=== PATIENT | female | born 1960 | race African-American/Black ===

== ENCOUNTER 2021-07-15 21:08 | Inpatient (IN) | payer MEDICARE, MEDICAID ==
[~2021-07-15] VITALS: Ht 157.5 cm; Wt 110.7 kg
[~2021-07-15 21:08] MED LIST: ALBU4TAB6 MT; ASPI-1497 MT; ATOR10TA69 MT; CODE10LI MT; IPRA4AER INH; MONT4TAB9 MT; PROT20 PO; ROFL250T PO; ROFL500T MT; TRAM150C25 MT
[2021-07-15 21:59] LABS: BASOPHILS % 0.2 % (0.0-2.0); EOSINOPHILS % 0.2 % (0.0-5.0); HEMATOCRIT. 35.7 % (36.0-48.0); HEMOGLOBIN. 11.8 g/dL (12.0-16.0); LYMPHOCYTES % 10.3 % (20.0-50.0); MEAN CORPUSCULAR HEMOGLOBIN 29.8 pg (28.0-32.0); MEAN CORPUSCULAR VOLUME 90.1 fL (81.0-99.0); MEAN PLATELET VOLUME 8.5 fl (7.4-10.4); MONOCYTES % 8.4 % (2.0-8.0); NEUTROPHILS % 80.9 % (40.0-76.0); PLATELET 299 x1000/uL (130-400); RED BLOOD CELL COUNT 3.96 mill/uL (4.2-5.4); RED CELL DISTRIBUTION WIDTH 14.1 % (11.6-14.6)
[2021-07-15 22:06] LABS: CHLORIDE 98 mEq/L (98-107)
[2021-07-15 22:44] LABS: CLARITY URINE CLOUDY (CLEAR); COLOR URINE YELLOW (YELLOW); KETONES URINE TRACE (NEGATIVE); LEUKOCYTE ESTERASE URINE TRACE (NEGATIVE); NITRITE URINE NEGATIVE (NEGATIVE); OCCULT BLOOD URINE TRACE (NEGATIVE); PROTEIN URINE 1+ (NEGATIVE); SPECIFIC GRAVITY URINE 1.026 (1.005-1.030)
[2021-07-16] MEDS ORDERED: AZITHROMYCIN 500 MG in DEXT 5% WATER 250 ML IV ONE (00:15)
[2021-07-16] MEDS ORDERED: CEFTRIAXONE 1 G PREMIX 50 ML IV ONE ×2 (00:15→09:00)
[2021-07-16] MEDS ORDERED: DEXTROSE 50% WATER 50ML SYRINGE IV PRN (01:00)
[2021-07-16] MEDS: DEXAMETHASONE 4MG/ML 1ML VIAL IV SCH ×2 (01:08→09:42)
[2021-07-16] MEDS: BLOOD SUGAR DIAGNOSTIC STRIP TEST SCH ×5 (06:30→20:51)
[2021-07-16 08:05] VITALS: BP 147/81
[2021-07-16] MEDS: INSULIN LISPRO 100 UNITS/ML SUBCUT SCH ×5 (08:10→20:51)
[2021-07-16] MEDS ORDERED: ENOXAPARIN 40MG/0.4ML SYR SUBCUT SCH (09:00)
[2021-07-16] MEDS ORDERED: LISI2.5T47 PO (09:35)
[2021-07-16] MEDS ORDERED: BENZ100C86 MT (09:35)
[2021-07-16] MEDS ORDERED: CETI-259 MT (09:35)
[2021-07-16 12:00] VITALS: BP 145/105
[2021-07-16] MEDS: GUAIFENESIN 200MG/10ML SUGAR FREE UDC PO PRN ×3 (12:14→22:04)
[2021-07-16] MEDS ORDERED: ALBUTEROL 6.7GM HFA INHALER ORI PRN (12:45)
[2021-07-16] MEDS: MONTELUKAST SODIUM 10MG TABLET PO SCH ×2 (13:11→22:04)
[2021-07-16 16:00] VITALS: BP 129/81
[2021-07-16] MEDS: ALBUTEROL 6.7GM HFA INHALER ORI SCH (18:30)
[2021-07-16 20:00] VITALS: BP 167/96
[2021-07-16] MEDS: ENOXAPARIN 30MG/0.3ML SYR SUBCUT SCH (20:51)
[2021-07-17] VITALS: BP 159/98
[2021-07-17] MEDS: CEFTRIAXONE 1,000 MG in DEXTROSE 5% WATER 50 ML IV SCH (00:03)
[2021-07-17] MEDS: ALBUTEROL 6.7GM HFA INHALER ORI SCH ×4 (00:04→18:08)
[2021-07-17] MEDS: AZITHROMYCIN 500 MG in DEXT 5% WATER 250 ML IV SCH (00:57)
[2021-07-17] MEDS ORDERED: AZITHROMYCIN 500 MG in DEXT 5% WATER 250 ML IV SCH (02:00)
[2021-07-17 04:00] VITALS: BP 148/86
[2021-07-17] MEDS: BLOOD SUGAR DIAGNOSTIC STRIP TEST SCH ×4 (06:05→20:27)
[2021-07-17 06:33] LABS: CHLORIDE 98 mEq/L (98-107)
[2021-07-17 06:46] LABS: BASOPHILS % 0.2 % (0.0-2.0); HEMATOCRIT. 38.3 % (36.0-48.0); HEMOGLOBIN. 12.1 g/dL (12.0-16.0); LYMPHOCYTES % 13.4 % (20.0-50.0); MEAN CORPUSCULAR HEMOGLOBIN 29.1 pg (28.0-32.0); MEAN CORPUSCULAR VOLUME 92.1 fL (81.0-99.0); MEAN PLATELET VOLUME 8.8 fl (7.4-10.4); MONOCYTES % 10.8 % (2.0-8.0); NEUTROPHILS % 75.6 % (40.0-76.0); PLATELET 339 x1000/uL (130-400); RED BLOOD CELL COUNT 4.16 mill/uL (4.2-5.4); RED CELL DISTRIBUTION WIDTH 14.3 % (11.6-14.6)
[2021-07-17 06:47] LABS: PHOSPHORUS 2.5 mg/dL (2.5-4.9)
[2021-07-17 08:00] VITALS: BP 144/83
[2021-07-17] MEDS: ENOXAPARIN 30MG/0.3ML SYR SUBCUT SCH ×2 (08:27→22:17)
[2021-07-17] MEDS: DEXAMETHASONE 4MG/ML 1ML VIAL IV SCH (08:27)
[2021-07-17] MEDS: INSULIN LISPRO 100 UNITS/ML SUBCUT SCH ×4 (08:28→22:12)
[2021-07-17] MEDS ORDERED: VANCOMYCIN 1,750 MG in DEXT 5% WATER 500 ML IV NR (10:00)
[2021-07-17] MEDS ORDERED: KCL 20MEQ/100ML PREMIX 100 ML IV NR (10:00)
[2021-07-17] MEDS: GUAIFENESIN 200MG/10ML SUGAR FREE UDC PO PRN (10:31)
[2021-07-17 12:00] VITALS: BP 128/71
[2021-07-17] MEDS ORDERED: POTASSIUM CHLORIDE 20MEQ TABLET SR PO NR (12:00)
[2021-07-17] MEDS: ACETAMINOPHEN 325MG TABLET PO PRN (12:29)
[2021-07-17 15:54] VITALS: BP 124/67
[2021-07-17 20:00] VITALS: BP 149/85
[2021-07-17] MEDS ORDERED: VANCOMYCIN 1 G PREMIX 200 ML IV SCH (22:00)
[2021-07-17] MEDS ORDERED: INSULIN GLARGINE UD 100 UNITS/ML SYR SUBCUT SCH (22:00)
[2021-07-17] MEDS: DEXAMETHASONE 10 MG/ML VIAL IV SCH (22:06)
[2021-07-17] MEDS: MONTELUKAST SODIUM 10MG TABLET PO SCH (22:11)
[2021-07-17] MEDS: VANCOMYCIN 750 MG PREMIX 150 ML IV SCH (22:17)
[2021-07-17] MEDS: GUAIFENESIN/DM 600MG/30MG ER TAB 12HR PO PRN (22:40)
[2021-07-18] VITALS: BP 148/77
[2021-07-18] MEDS: CEFTRIAXONE 1,000 MG in DEXTROSE 5% WATER 50 ML IV SCH (00:44)
[2021-07-18] MEDS: ALBUTEROL 6.7GM HFA INHALER ORI SCH ×7 (00:44→22:16)
[2021-07-18] MEDS: AZITHROMYCIN 500 MG in DEXT 5% WATER 250 ML IV SCH (01:26)
[2021-07-18 04:00] VITALS: BP 154/82
[2021-07-18] MEDS: DEXAMETHASONE 10 MG/ML VIAL IV SCH ×2 (05:36→13:00)
[2021-07-18 06:41] LABS: BASOPHILS % 0.1 % (0.0-2.0); HEMATOCRIT. 39.2 % (36.0-48.0); HEMOGLOBIN. 12.5 g/dL (12.0-16.0); LYMPHOCYTES % 12.1 % (20.0-50.0); MEAN CORPUSCULAR HEMOGLOBIN 29.5 pg (28.0-32.0); MEAN PLATELET VOLUME 8.9 fl (7.4-10.4); MONOCYTES % 6.7 % (2.0-8.0); NEUTROPHILS % 81.1 % (40.0-76.0); PLATELET 376 x1000/uL (130-400); RED BLOOD CELL COUNT 4.22 mill/uL (4.2-5.4)
[2021-07-18 06:51] LABS: CHLORIDE 98 mEq/L (98-107)
[2021-07-18] MEDS ORDERED: INSULIN LISPRO 100 UNITS/ML SUBCUT SCH ×4 (07:40→17:40)
[2021-07-18] MEDS: BLOOD SUGAR DIAGNOSTIC STRIP TEST SCH ×4 (07:40→21:00)
[2021-07-18 08:00] VITALS: BP 161/98
[2021-07-18] MEDS: GUAIFENESIN/DM 600MG/30MG ER TAB 12HR PO PRN (09:52)
[2021-07-18] MEDS: ACETAMINOPHEN 325MG TABLET PO PRN (09:52)
[2021-07-18] MEDS: ENOXAPARIN 30MG/0.3ML SYR SUBCUT SCH ×2 (09:53→22:17)
[2021-07-18] MEDS: INSULIN LISPRO 100 UNITS/ML SUBCUT SCH ×4 (09:54→22:20)
[2021-07-18] MEDS: VANCOMYCIN 750 MG PREMIX 150 ML IV SCH (10:00)
[2021-07-18 12:00] VITALS: BP 138/79
[2021-07-18] MEDS: BENZONATATE 100MG CAPSULE PO PRN ×2 (12:40→22:17)
[2021-07-18] MEDS ORDERED: LISINOPRIL 2.5MG TABLET PO SCH (13:00)
[2021-07-18 20:00] VITALS: BP 170/91
[2021-07-18] MEDS ORDERED: INSULIN GLARGINE UD 100 UNITS/ML SYR SUBCUT SCH (22:00)
[2021-07-18] MEDS: MONTELUKAST SODIUM 10MG TABLET PO SCH (22:17)
[2021-07-19] VITALS: BP 156/80
[2021-07-19] MEDS: CEFTRIAXONE 1,000 MG in DEXTROSE 5% WATER 50 ML IV SCH (00:02)
[2021-07-19] MEDS: ALBUTEROL 6.7GM HFA INHALER ORI SCH ×6 (00:03→22:26)
[2021-07-19] MEDS: AZITHROMYCIN 500 MG in DEXT 5% WATER 250 ML IV SCH (01:17)
[2021-07-19] MEDS: GUAIFENESIN/DM 600MG/30MG ER TAB 12HR PO PRN ×2 (01:25→13:16)
[2021-07-19 04:00] VITALS: BP 163/84
[2021-07-19 05:49] LABS: CHLORIDE 101 mEq/L (98-107)
[2021-07-19 05:56] LABS: PHOSPHORUS 2.7 mg/dL (2.5-4.9)
[2021-07-19 06:08] LABS: BASOPHILS % 0.4 % (0.0-2.0); HEMATOCRIT. 36.6 % (36.0-48.0); HEMOGLOBIN. 11.6 g/dL (12.0-16.0); LYMPHOCYTES % 13.5 % (20.0-50.0); MEAN CORPUSCULAR HEMOGLOBIN 29.2 pg (28.0-32.0); MEAN PLATELET VOLUME 8.8 fl (7.4-10.4); NEUTROPHILS % 77.1 % (40.0-76.0); PLATELET 430 x1000/uL (130-400); RED BLOOD CELL COUNT 3.97 mill/uL (4.2-5.4)
[2021-07-19] MEDS: BLOOD SUGAR DIAGNOSTIC STRIP TEST SCH ×4 (07:24→21:00)
[2021-07-19] MEDS ORDERED: INSULIN LISPRO 100 UNITS/ML SUBCUT SCH ×3 (07:40→17:40)
[2021-07-19 08:00] VITALS: BP 135/78
[2021-07-19 08:31] LABS: BG BASE EXCESS 5.8 mmol/L (-2.0-2.0); BG CARBOXYHEMOGLOBIN 0.6 % (0.5-1.5); BG DEOXYHEMOGLOBIN 8.9 % (0.0-5.0); BG HCO3 ACT 29.7 mmol/L (22.0-26.0); BG METHEMOGLOBIN 0.3 % (0.0-1.5); BG OXYHEMOGLOBIN 90.2 % (94.0-97.0); BG PCO2 40.2 mmHg (35.0-45.0); BG PH 7.486 (7.350-7.450); BG PO2 58.1 mmHg (75.0-100.0); BG SAMPLE SITE RIGHT RADIAL; BG TOTAL HEMOGLOBIN 13.1 g/dL (12.0-18.0); BG VENT MODE MASK - NRB
[2021-07-19] MEDS: INSULIN LISPRO 100 UNITS/ML SUBCUT SCH ×4 (08:59→22:27)
[2021-07-19] MEDS ORDERED: ENOXAPARIN 40MG/0.4ML SYR SUBCUT SCH (09:00)
[2021-07-19] MEDS ORDERED: PNEUMOCOCCAL 23-VAL P-SAC VAC 0.5 ML IM ONE (09:00)
[2021-07-19] MEDS: ENOXAPARIN 30MG/0.3ML SYR SUBCUT SCH ×2 (09:00→22:26)
[2021-07-19] MEDS: LISINOPRIL 5MG TABLET PO SCH (09:02)
[2021-07-19] MEDS: DEXAMETHASONE 10 MG/ML VIAL IV SCH ×2 (09:03→18:08)
[2021-07-19 12:00] VITALS: BP 130/69
[2021-07-19 16:00] VITALS: BP 143/76
[2021-07-19] MEDS: BENZONATATE 100MG CAPSULE PO PRN (18:08)
[2021-07-19 20:00] VITALS: BP 155/86
[2021-07-19] MEDS ORDERED: INSULIN GLARGINE UD 100 UNITS/ML SYR SUBCUT SCH (22:00)
[2021-07-19] MEDS: MONTELUKAST SODIUM 10MG TABLET PO SCH (22:26)
[2021-07-20] VITALS: BP 147/77
[2021-07-20] MEDS: CEFTRIAXONE 1,000 MG in DEXTROSE 5% WATER 50 ML IV SCH (00:20)
[2021-07-20] MEDS: ALBUTEROL 6.7GM HFA INHALER ORI SCH ×7 (00:20→23:54)
[2021-07-20] MEDS: AZITHROMYCIN 500 MG in DEXT 5% WATER 250 ML IV SCH (01:38)
[2021-07-20] MEDS: GUAIFENESIN/DM 600MG/30MG ER TAB 12HR PO PRN (01:41)
[2021-07-20 04:00] VITALS: BP 152/83
[2021-07-20] MEDS: CLONIDINE 0.1MG TABLET PO PRN ×2 (06:16→21:56)
[2021-07-20 07:06] LABS: BASOPHILS % 0.3 % (0.0-2.0); EOSINOPHILS % 0.1 % (0.0-5.0); HEMATOCRIT. 38.1 % (36.0-48.0); HEMOGLOBIN. 12.3 g/dL (12.0-16.0); LYMPHOCYTES % 14.6 % (20.0-50.0); MEAN CORPUSCULAR HEMOGLOBIN 29.7 pg (28.0-32.0); MEAN CORPUSCULAR VOLUME 92.4 fL (81.0-99.0); MEAN PLATELET VOLUME 8.9 fl (7.4-10.4); MONOCYTES % 8.3 % (2.0-8.0); NEUTROPHILS % 76.7 % (40.0-76.0); PLATELET 472 x1000/uL (130-400); RED BLOOD CELL COUNT 4.13 mill/uL (4.2-5.4)
[2021-07-20] MEDS: BLOOD SUGAR DIAGNOSTIC STRIP TEST SCH ×4 (07:26→21:54)
[2021-07-20 07:40] LABS: CHLORIDE 100 mEq/L (98-107)
[2021-07-20] MEDS ORDERED: INSULIN LISPRO 100 UNITS/ML SUBCUT SCH ×5 (07:40→17:40)
[2021-07-20 08:00] VITALS: BP_SYST 155; BP_DIAS 71; BP_DIAS 91
[2021-07-20] MEDS: ACETAMINOPHEN 325MG TABLET PO PRN (08:26)
[2021-07-20] MEDS: ENOXAPARIN 30MG/0.3ML SYR SUBCUT SCH ×2 (08:26→21:53)
[2021-07-20] MEDS: LISINOPRIL 5MG TABLET PO SCH (08:26)
[2021-07-20] MEDS: BENZONATATE 100MG CAPSULE PO PRN (08:26)
[2021-07-20] MEDS: DEXAMETHASONE 10 MG/ML VIAL IV SCH ×2 (08:26→17:15)
[2021-07-20] MEDS: INSULIN LISPRO 100 UNITS/ML SUBCUT SCH ×4 (08:28→21:53)
[2021-07-20 12:00] VITALS: BP 150/85
[2021-07-20 16:00] VITALS: BP 152/81
[2021-07-20 20:00] VITALS: BP 177/97
[2021-07-20] MEDS: MONTELUKAST SODIUM 10MG TABLET PO SCH (21:57)
[2021-07-20] MEDS ORDERED: INSULIN GLARGINE UD 100 UNITS/ML SYR SUBCUT SCH (22:00)
[2021-07-21] VITALS (9 sets, daily range): BP systolic 135–178; BP diastolic 66–98
[2021-07-21] MEDS: ALBUTEROL 6.7GM HFA INHALER ORI SCH ×3 (04:12→11:09)
[2021-07-21] MEDS: CLONIDINE 0.1MG TABLET PO PRN ×2 (04:40→12:31)
[2021-07-21] MEDS: BLOOD SUGAR DIAGNOSTIC STRIP TEST SCH ×4 (07:57→20:38)
[2021-07-21] MEDS: DEXAMETHASONE 10 MG/ML VIAL IV SCH ×2 (08:03→17:53)
[2021-07-21] MEDS: BENZONATATE 100MG CAPSULE PO PRN ×2 (08:03→12:30)
[2021-07-21] MEDS: LISINOPRIL 10MG TABLET PO SCH (08:04)
[2021-07-21] MEDS: ENOXAPARIN 30MG/0.3ML SYR SUBCUT SCH ×2 (08:04→21:38)
[2021-07-21] MEDS: INSULIN LISPRO 100 UNITS/ML SUBCUT SCH ×7 (08:05→21:37)
[2021-07-21] MEDS: GUAIFENESIN/DM 600MG/30MG ER TAB 12HR PO PRN (12:30)
[2021-07-21] MEDS ORDERED: IPRATROPIUM/ALBUTEROL 0.5-3(2.5)MG/3ML NEB HHN PRN (15:15)
[2021-07-21] MEDS: ACETAMINOPHEN 325MG TABLET PO PRN (17:53)
[2021-07-21] MEDS: CETIRIZINE 10MG TABLET PO PRN (18:25)
[2021-07-21] MEDS: MONTELUKAST SODIUM 10MG TABLET PO SCH (21:38)
[2021-07-21] MEDS ORDERED: INSULIN GLARGINE UD 100 UNITS/ML SYR SUBCUT SCH (22:00)
[2021-07-22] VITALS (10 sets, daily range): BP systolic 117–208; BP diastolic 56–164
[2021-07-22] MEDS: CLONIDINE 0.1MG TABLET PO PRN (04:11)
[2021-07-22] MEDS: INSULIN LISPRO 100 UNITS/ML SUBCUT SCH ×7 (05:56→20:10)
[2021-07-22] MEDS: BLOOD SUGAR DIAGNOSTIC STRIP TEST SCH ×4 (06:00→20:10)
[2021-07-22] MEDS ORDERED: HYDRALAZINE HCL 25MG TABLET PO PRN (06:45)
[2021-07-22] MEDS: BENZONATATE 100MG CAPSULE PO PRN ×2 (08:28→20:08)
[2021-07-22] MEDS: CETIRIZINE 10MG TABLET PO PRN (08:29)
[2021-07-22] MEDS: DEXAMETHASONE 10 MG/ML VIAL IV SCH (08:30)
[2021-07-22] MEDS: LISINOPRIL 10MG TABLET PO SCH (08:30)
[2021-07-22] MEDS: ENOXAPARIN 30MG/0.3ML SYR SUBCUT SCH ×2 (08:31→20:08)
[2021-07-22] MEDS: IPRATROPIUM/ALBUTEROL 0.5-3(2.5)MG/3ML NEB HHN SCH ×2 (11:20→20:15)
[2021-07-22] MEDS: GUAIFENESIN/DM 600MG/30MG ER TAB 12HR PO PRN (12:20)
[2021-07-22 12:43] LABS: BASOPHILS % 0.5 % (0.0-2.0); EOSINOPHILS % 0.1 % (0.0-5.0); HEMATOCRIT. 41.6 % (36.0-48.0); HEMOGLOBIN. 13.1 g/dL (12.0-16.0); LYMPHOCYTES % 12.5 % (20.0-50.0); MEAN CORPUSCULAR HEMOGLOBIN 28.9 pg (28.0-32.0); MEAN CORPUSCULAR VOLUME 91.3 fL (81.0-99.0); MEAN PLATELET VOLUME 8.4 fl (7.4-10.4); MONOCYTES % 4.4 % (2.0-8.0); NEUTROPHILS % 82.5 % (40.0-76.0); PLATELET 613 x1000/uL (130-400); RED BLOOD CELL COUNT 4.55 mill/uL (4.2-5.4); RED CELL DISTRIBUTION WIDTH 14.1 % (11.6-14.6)
[2021-07-22 12:49] LABS: CHLORIDE 100 mEq/L (98-107)
[2021-07-22 12:55] LABS: PHOSPHORUS 3.2 mg/dL (2.5-4.9)
[2021-07-22] MEDS ORDERED: IPRATROPIUM/ALBUTEROL 0.5-3(2.5)MG/3ML NEB ONE (16:05)
[2021-07-22] MEDS: MONTELUKAST SODIUM 10MG TABLET PO SCH (20:08)
[2021-07-22] MEDS ORDERED: INSULIN GLARGINE UD 100 UNITS/ML SYR SUBCUT SCH (23:00)
[2021-07-23] VITALS (10 sets, daily range): BP systolic 106–138; BP diastolic 59–87
[2021-07-23] MEDS: IPRATROPIUM/ALBUTEROL 0.5-3(2.5)MG/3ML NEB HHN SCH ×4 (02:24→21:33)
[2021-07-23] MEDS: ACETAMINOPHEN 325MG TABLET PO PRN ×2 (02:55→09:42)
[2021-07-23] MEDS: BLOOD SUGAR DIAGNOSTIC STRIP TEST SCH ×4 (06:16→21:07)
[2021-07-23] MEDS ORDERED: INSULIN LISPRO 100 UNITS/ML SUBCUT SCH ×4 (06:50→17:20)
[2021-07-23 08:13] LABS: BASOPHILS % 0.5 % (0.0-2.0); EOSINOPHILS % 0.1 % (0.0-5.0); HEMATOCRIT. 37.2 % (36.0-48.0); HEMOGLOBIN. 12.1 g/dL (12.0-16.0); LYMPHOCYTES % 29.6 % (20.0-50.0); MEAN CORPUSCULAR HEMOGLOBIN 29.4 pg (28.0-32.0); MEAN CORPUSCULAR VOLUME 90.2 fL (81.0-99.0); MEAN PLATELET VOLUME 8.4 fl (7.4-10.4); MONOCYTES % 8.9 % (2.0-8.0); NEUTROPHILS % 60.9 % (40.0-76.0); PLATELET 559 x1000/uL (130-400); RED BLOOD CELL COUNT 4.12 mill/uL (4.2-5.4)
[2021-07-23 08:15] LABS: CHLORIDE 103 mEq/L (98-107)
[2021-07-23 08:22] LABS: PHOSPHORUS 4.1 mg/dL (2.5-4.9)
[2021-07-23] MEDS: LISINOPRIL 10MG TABLET PO SCH (09:14)
[2021-07-23] MEDS: DEXAMETHASONE 10 MG/ML VIAL IV SCH (09:14)
[2021-07-23] MEDS: BENZONATATE 100MG CAPSULE PO PRN (09:14)
[2021-07-23] MEDS: CETIRIZINE 10MG TABLET PO PRN (09:14)
[2021-07-23] MEDS: ENOXAPARIN 30MG/0.3ML SYR SUBCUT SCH ×2 (09:15→21:07)
[2021-07-23] MEDS: INSULIN LISPRO 100 UNITS/ML SUBCUT SCH ×4 (09:21→21:04)
[2021-07-23] MEDS ORDERED: THROAT LOZENGES-BENZOCAINE/MENTH/CETYLPYRD CL LOZENGES MM PRN (13:00)
[2021-07-23] MEDS ORDERED: ACETAMINOPHEN 325MG TABLET PO NR (15:00)
[2021-07-23] MEDS ORDERED: ACETAMINOPHEN 500MG TABLET PO NR (15:10)
[2021-07-23] MEDS ORDERED: MED4 MT (16:15)
[2021-07-23] MEDS ORDERED: LISI10TA26 PO (16:15)
[2021-07-23] MEDS ORDERED: CETI10TA6 PO (16:15)
[2021-07-23] MEDS ORDERED: BENZ100C86 PO (16:15)
[2021-07-23] MEDS ORDERED: MONT10TA21 PO (16:15)
[2021-07-23] MEDS ORDERED: INSU100I24 SQ (16:31)
[2021-07-23] MEDS ORDERED: INSU100I13 SQ (16:31)
[2021-07-23] MEDS ORDERED: ALBU18HF2 IH (16:41)
[2021-07-23] MEDS ORDERED: PANT40TA51 MT (17:17)
[2021-07-23] MEDS: MONTELUKAST SODIUM 10MG TABLET PO SCH (21:02)
[2021-07-23] MEDS ORDERED: INSULIN GLARGINE UD 100 UNITS/ML SYR SUBCUT SCH (22:00)
[2021-07-24] VITALS (9 sets, daily range): BP systolic 90–132; BP diastolic 51–95
[2021-07-24] MEDS: IPRATROPIUM/ALBUTEROL 0.5-3(2.5)MG/3ML NEB HHN SCH ×3 (03:04→15:05)
[2021-07-24] MEDS: BLOOD SUGAR DIAGNOSTIC STRIP TEST SCH ×2 (06:30→12:29)
[2021-07-24] MEDS ORDERED: INSULIN LISPRO 100 UNITS/ML SUBCUT SCH ×2 (06:50→11:50)
[2021-07-24] MEDS: DEXAMETHASONE 10 MG/ML VIAL IV SCH (08:21)
[2021-07-24] MEDS: ENOXAPARIN 30MG/0.3ML SYR SUBCUT SCH (08:21)
[2021-07-24] MEDS: INSULIN LISPRO 100 UNITS/ML SUBCUT SCH ×2 (08:22→12:42)
[2021-07-24] MEDS: LISINOPRIL 10MG TABLET PO SCH (08:22)
[2021-07-24] MEDS ORDERED: LIDOCAINE HCL/PF 1% 2ML VIAL ONE (12:05)
[2021-07-24 12:23] LABS: BG BASE EXCESS 1.7 mmol/L (-2.0-2.0); BG CARBOXYHEMOGLOBIN 0.8 % (0.5-1.5); BG DEOXYHEMOGLOBIN 13.7 % (0.0-5.0); BG METHEMOGLOBIN 0.1 % (0.0-1.5); BG OXYGEN SATURATION 86.2 % (92.0-98.5); BG OXYHEMOGLOBIN 85.4 % (94.0-97.0); BG PCO2 35.2 mmHg (35.0-45.0); BG SAMPLE SITE RIGHT BRACHIAL; BG TOTAL HEMOGLOBIN 13.6 g/dL (12.0-18.0); BG VENT MODE ROOM AIR
[2021-07-24] MEDS ORDERED: BENZ100C86 PO (16:27)
[2021-07-24] MEDS ORDERED: MONT10TA21 PO (16:27)
[2021-07-24] MEDS ORDERED: LISI10TA26 PO (16:27)
[2021-07-24] MEDS ORDERED: CETI10TA6 PO (16:27)
[2021-07-24] MEDS ORDERED: INSULIN GLARGINE UD 100 UNITS/ML SYR SUBCUT SCH (22:00)
== END 2021-07-24 16:41 | disposition home health service (06) | DRG 871 ==
LOC: ER 21:08 → SUPCPDRO 23:50 → MICUSO 23:51 → EDBEDREQTM 23:53 → EDBEDREQ 23:53 → 7WST 07-16 07:25 → 3WST 07-21 11:22
PROVIDERS: ADMIT Internal Medicine; ATTEND Internal Medicine
DX: A41.89 Other specified sepsis (principal); U07.1 COVID-19; J96.01 Acute respiratory failure with hypoxia; J12.82 Pneumonia due to coronavirus disease 2019; J44.0 Chronic obstructive pulmonary disease with (acute) lower respiratory infection; E44.1 Mild protein-calorie malnutrition; E87.2 Acidosis; Z68.41 Body mass index [BMI] 40.0-44.9, adult; A41.1 Sepsis due to other specified staphylococcus; R65.20 Severe sepsis without septic shock; E11.9 Type 2 diabetes mellitus without complications; E88.81 Metabolic syndrome and other insulin resistance; E66.9 Obesity, unspecified; E78.5 Hyperlipidemia, unspecified; R74.01 Elevation of levels of liver transaminase levels; E87.6 Hypokalemia; E78.00 Pure hypercholesterolemia, unspecified; I10 Essential (primary) hypertension; I48.91 Unspecified atrial fibrillation; T38.0X5A Adverse effect of glucocorticoids and synthetic analogues, initial encounter; Z87.891 Personal history of nicotine dependence; Z79.899 Other long term (current) drug therapy; Z79.4 Long term (current) use of insulin; Z82.49 Family history of ischemic heart disease and other diseases of the circulatory system; Y92.89 Other specified places as the place of occurrence of the external cause
CPT/HCPCS: 36415; 36600; 71045; 80048; 80053; 80202; 81003; 82375; 82728; 82805; 82962; 83036; 83605; 83615; 83735; 83880; 84100; 84145; 84484; 85025; 85379; 86140; 87426; 90732; 93005; 94640; 97162; 99291; C1893; J0456; J0696; J1100; J1650; J1815; J3370; J3480; J3490; J7040; J7060

== ENCOUNTER 2021-09-26 17:00 | Inpatient (IN) | payer MEDICARE, MEDICAID ==
[~2021-09-26] VITALS: Ht 167.6 cm; Wt 112.9 kg
[~2021-09-26 17:00] MED LIST changes: +ALBU18HF2 IH; +BENZ100C86 PO; +CETI10TA6 PO; -CODE10LI MT; +INSU100I13 SQ; +INSU100I24 SQ; +LISI10TA26 PO; +MED4 MT; +MONT10TA21 PO; -MONT4TAB9 MT; +PANT40TA51 MT; -ROFL500T MT; -TRAM150C25 MT
[2021-09-26] MEDS ORDERED: IPRATROPIUM BROMIDE (0.02%) 0.5MG/2.5ML NEB HHN STA (17:41)
[2021-09-26] MEDS ORDERED: ALBUTEROL (0.083%) 2.5MG/3ML NEB HHN STA (17:41)
[2021-09-26] MEDS ORDERED: METHYLPREDNISOLONE SOD SUCC 125 MG/2 ML VIAL IV STA (17:41)
[2021-09-26 18:34] LABS: BASOPHILS % 0.6 % (0.0-2.0); EOSINOPHILS % 0.1 % (0.0-5.0); HEMATOCRIT. 39.2 % (36.0-48.0); HEMOGLOBIN. 12.8 g/dL (12.0-16.0); LYMPHOCYTES % 13.9 % (20.0-50.0); MEAN CORPUSCULAR HEMOGLOBIN 30.2 pg (28.0-32.0); MEAN CORPUSCULAR VOLUME 92.4 fL (81.0-99.0); MEAN PLATELET VOLUME 8.7 fl (7.4-10.4); MONOCYTES % 3.6 % (2.0-8.0); NEUTROPHILS % 81.8 % (40.0-76.0); PLATELET 338 x1000/uL (130-400); RED BLOOD CELL COUNT 4.24 mill/uL (4.2-5.4); RED CELL DISTRIBUTION WIDTH 15.1 % (11.6-14.6)
[2021-09-26 18:40] LABS: CHLORIDE 102 mEq/L (98-107)
[2021-09-26] MEDS ORDERED: BENZONATATE 200MG CAPSULE PO ONE (18:45)
[2021-09-26] MEDS ORDERED: SODIUM CHLORIDE 0.9% 1,000 ML IV ONE (19:15)
[2021-09-26] MEDS ORDERED: P50 MT (20:36)
[2021-09-26] MEDS ORDERED: ALBU6.7H9 INH (20:38)
[2021-09-27] MEDS ORDERED: CLONIDINE 0.1MG TABLET PO PRN
[2021-09-27] MEDS ORDERED: DIPHENHYDRAMINE 50MG/ML VIAL IV PRN
[2021-09-27] MEDS ORDERED: ZOLPIDEM TARTRATE 5MG TABLET PO PRN
[2021-09-27] MEDS ORDERED: ACETAMINOPHEN 325MG TABLET PO PRN
[2021-09-27] MEDS ORDERED: IPRATROPIUM/ALBUTEROL 0.5-3(2.5)MG/3ML NEB HHN PRN
[2021-09-27] MEDS ORDERED: LEVOFLOXACIN 500MG PREMIX 100 ML IV SCH
[2021-09-27] MEDS ORDERED: ONDANSETRON HCL 4MG/2ML INJ IV PRN
[2021-09-27] MEDS ORDERED: INSULIN LISPRO 100 UNITS/ML SUBCUT SCH ×2 (01:00→17:10)
[2021-09-27] MEDS: BLOOD SUGAR DIAGNOSTIC STRIP TEST SCH ×5 (01:12→21:00)
[2021-09-27] MEDS: ENOXAPARIN 30MG/0.3ML SYR SUBCUT SCH ×3 (01:27→22:14)
[2021-09-27] MEDS ORDERED: HYDRALAZINE 20MG/ML VIAL IV PRN (01:30)
[2021-09-27] MEDS ORDERED: INSULIN LISPRO (HUMALOG) 300UNITS/3ML VIAL SUBCUT NR (01:30)
[2021-09-27] MEDS: ACETAMINOPHEN 325MG TABLET PO PRN ×4 (01:42→17:21)
[2021-09-27] MEDS: METHYLPREDNISOLONE SOD SUCC 125 MG/2 ML VIAL IV SCH ×3 (02:17→17:04)
[2021-09-27] MEDS: BENZONATATE 200MG CAPSULE PO PRN ×2 (03:33→17:04)
[2021-09-27 04:59] VITALS: BP 154/83
[2021-09-27] MEDS: IPRATROPIUM/ALBUTEROL 0.5-3(2.5)MG/3ML NEB HHN SCH ×4 (05:15→20:30)
[2021-09-27] MEDS: SODIUM CHLORIDE 0.9% INJ 3ML FLUSH IVF SCH ×3 (06:47→22:14)
[2021-09-27] MEDS: OMEPRAZOLE 20MG CAPSULE EXTENDED RELEASE PO SCH ×2 (06:49→22:15)
[2021-09-27 08:00] VITALS: BP 150/80
[2021-09-27] MEDS: GUAIFENESIN 600MG ER TABLET PO SCH ×2 (08:31→22:15)
[2021-09-27] MEDS: LISINOPRIL 10MG TABLET PO SCH (08:32)
[2021-09-27] MEDS: INSULIN GLARGINE UD 100 UNITS/ML SYR SUBCUT SCH (09:38)
[2021-09-27] MEDS ORDERED: INSULIN LISPRO 100 UNITS/ML SUBCUT NR (12:30)
[2021-09-27 16:00] VITALS: BP 133/91
[2021-09-27] MEDS: MONTELUKAST SODIUM 10MG TABLET PO SCH (17:04)
[2021-09-27] MEDS ORDERED: INSULIN LISPRO (HIGH DOSE) 100 UNITS/ML SUBCUT SCH (17:10)
[2021-09-27 20:00] VITALS: BP 143/83
[2021-09-27] MEDS ORDERED: INSULIN GLARGINE UD 100 UNITS/ML SYR SUBCUT SCH (22:00)
[2021-09-27] MEDS ORDERED: DEXTROSE 50% WATER 50ML SYRINGE IV PRN ×2 (23:00)
[2021-09-27] MEDS: INSULIN LISPRO 100 UNITS/ML SUBCUT SCH (23:14)
[2021-09-28] MEDS: BENZONATATE 200MG CAPSULE PO PRN (02:13)
[2021-09-28] MEDS: METHYLPREDNISOLONE SOD SUCC 125 MG/2 ML VIAL IV SCH ×2 (02:13→09:27)
[2021-09-28] MEDS: IPRATROPIUM/ALBUTEROL 0.5-3(2.5)MG/3ML NEB HHN SCH ×4 (02:23→21:48)
[2021-09-28 04:00] VITALS: BP 145/89
[2021-09-28] MEDS: OMEPRAZOLE 20MG CAPSULE EXTENDED RELEASE PO SCH ×2 (05:49→21:02)
[2021-09-28] MEDS: BLOOD SUGAR DIAGNOSTIC STRIP TEST SCH ×4 (06:09→21:03)
[2021-09-28] MEDS: SODIUM CHLORIDE 0.9% INJ 3ML FLUSH IVF SCH ×3 (06:09→21:03)
[2021-09-28] MEDS ORDERED: BLOOD SUGAR DIAGNOSTIC STRIP TEST SCH (07:10)
[2021-09-28 08:00] VITALS: BP 148/78
[2021-09-28] MEDS: ENOXAPARIN 30MG/0.3ML SYR SUBCUT SCH ×2 (09:28→21:09)
[2021-09-28] MEDS: GUAIFENESIN 600MG ER TABLET PO SCH ×2 (09:28→21:02)
[2021-09-28] MEDS: LISINOPRIL 10MG TABLET PO SCH (09:29)
[2021-09-28] MEDS: INSULIN GLARGINE UD 100 UNITS/ML SYR SUBCUT SCH (09:30)
[2021-09-28] MEDS: ACETAMINOPHEN 325MG TABLET PO PRN (09:41)
[2021-09-28 12:00] VITALS: BP 156/81
[2021-09-28] MEDS: INSULIN LISPRO 100 UNITS/ML SUBCUT SCH ×4 (15:17→21:04)
[2021-09-28 16:00] VITALS: BP 154/79
[2021-09-28] MEDS: PREDNISONE 20MG TABLET PO SCH (18:18)
[2021-09-28] MEDS: MONTELUKAST SODIUM 10MG TABLET PO SCH (18:18)
[2021-09-28 20:00] VITALS: BP 165/89
[2021-09-28] MEDS: PROMETHAZINE/DEXTROMETHORPHAN 6.25-15MG/5ML BOTTLE 120ML PO PRN (21:02)
[2021-09-29] VITALS: BP 155/74
[2021-09-29] MEDS: IPRATROPIUM/ALBUTEROL 0.5-3(2.5)MG/3ML NEB HHN SCH ×4 (01:50→21:22)
[2021-09-29 04:00] VITALS: BP 148/83
[2021-09-29] MEDS: BLOOD SUGAR DIAGNOSTIC STRIP TEST SCH ×4 (05:22→20:31)
[2021-09-29] MEDS: SODIUM CHLORIDE 0.9% INJ 3ML FLUSH IVF SCH ×3 (05:22→20:32)
[2021-09-29] MEDS: PROMETHAZINE/DEXTROMETHORPHAN 6.25-15MG/5ML BOTTLE 120ML PO PRN ×3 (05:24→18:07)
[2021-09-29] MEDS: INSULIN LISPRO 100 UNITS/ML SUBCUT SCH ×4 (05:25→20:37)
[2021-09-29 08:00] VITALS: BP 145/81
[2021-09-29] MEDS: PREDNISONE 20MG TABLET PO SCH (10:15)
[2021-09-29] MEDS: FAMOTIDINE 20MG TABLET PO SCH ×2 (10:15→20:30)
[2021-09-29] MEDS: GUAIFENESIN 600MG ER TABLET PO SCH ×2 (10:15→20:30)
[2021-09-29] MEDS: LISINOPRIL 10MG TABLET PO SCH (10:19)
[2021-09-29] MEDS: ENOXAPARIN 30MG/0.3ML SYR SUBCUT SCH ×2 (10:20→20:31)
[2021-09-29] MEDS: INSULIN GLARGINE UD 100 UNITS/ML SYR SUBCUT SCH (10:21)
[2021-09-29 12:00] VITALS: BP 148/91
[2021-09-29 16:00] VITALS: BP 135/93
[2021-09-29] MEDS: MONTELUKAST SODIUM 10MG TABLET PO SCH (18:02)
[2021-09-29] MEDS: LEVOFLOXACIN 500MG TABLET PO SCH (18:02)
[2021-09-29 20:00] VITALS: BP 110/70
[2021-09-29] MEDS: BENZONATATE 200MG CAPSULE PO PRN (23:44)
[2021-09-30] VITALS: BP 118/76
[2021-09-30] MEDS: IPRATROPIUM/ALBUTEROL 0.5-3(2.5)MG/3ML NEB HHN SCH ×3 (01:13→11:40)
[2021-09-30 04:00] VITALS: BP 126/88
[2021-09-30] MEDS: SODIUM CHLORIDE 0.9% INJ 3ML FLUSH IVF SCH (06:02)
[2021-09-30] MEDS: PROMETHAZINE/DEXTROMETHORPHAN 6.25-15MG/5ML BOTTLE 120ML PO PRN (06:03)
[2021-09-30] MEDS: BLOOD SUGAR DIAGNOSTIC STRIP TEST SCH ×2 (06:05→12:10)
[2021-09-30] MEDS: INSULIN LISPRO 100 UNITS/ML SUBCUT SCH ×2 (06:05→13:17)
[2021-09-30 08:00] VITALS: BP 133/89
[2021-09-30] MEDS: FAMOTIDINE 20MG TABLET PO SCH (09:10)
[2021-09-30] MEDS: LISINOPRIL 10MG TABLET PO SCH (09:10)
[2021-09-30] MEDS: GUAIFENESIN 600MG ER TABLET PO SCH (09:10)
[2021-09-30] MEDS: PREDNISONE 20MG TABLET PO SCH (09:10)
[2021-09-30] MEDS: ENOXAPARIN 30MG/0.3ML SYR SUBCUT SCH (09:11)
[2021-09-30] MEDS: LEVOFLOXACIN 500MG TABLET PO SCH (10:24)
[2021-09-30] MEDS: INSULIN GLARGINE UD 100 UNITS/ML SYR SUBCUT SCH (10:25)
[2021-09-30 12:00] VITALS: BP 127/71
[2021-09-30 14:29] VITALS: BP 127/71
[2021-09-30] MEDS ORDERED: LEVO500T89 MT (14:59)
[2021-09-30] MEDS ORDERED: PROM6.2514 MT (15:03)
== END 2021-09-30 16:40 | disposition home or self-care (01) | DRG 189 ==
LOC: ER 17:00 → MICUSO 23:18 → 8WST 09-27 03:11
PROVIDERS: ADMIT Internal Medicine; ATTEND Internal Medicine
DX: J96.21 Acute and chronic respiratory failure with hypoxia (principal); J84.9 Interstitial pulmonary disease, unspecified; J44.1 Chronic obstructive pulmonary disease with (acute) exacerbation; J44.0 Chronic obstructive pulmonary disease with (acute) lower respiratory infection; E11.9 Type 2 diabetes mellitus without complications; E78.5 Hyperlipidemia, unspecified; I10 Essential (primary) hypertension; K21.9 Gastro-esophageal reflux disease without esophagitis; Z20.822 Contact with and (suspected) exposure to COVID-19; J20.9 Acute bronchitis, unspecified; Z86.16 Personal history of COVID-19; Z99.81 Dependence on supplemental oxygen; Z79.82 Long term (current) use of aspirin; Z79.899 Other long term (current) drug therapy; Z79.4 Long term (current) use of insulin; Z82.49 Family history of ischemic heart disease and other diseases of the circulatory system
CPT/HCPCS: 36415; 71045; 80053; 82962; 83036; 85025; 87426; 94640; 99285; C1893; J1650; J1815; J1956; J2930; J7030; J7040; J7512